=== PATIENT | female | born 1970 | race Asian ===

== ENCOUNTER 2017-08-14 19:43 | Emergency (ER) | payer OTHER ==
[~2017-08-14] VITALS: Ht 157.5 cm; Wt 59.9 kg
[2017-08-14] MEDS ORDERED: NKM (20:00)
--- NOTE | 2017-08-14 20:29 | Emergency Room Report ---
History of Present Illness General Chief Complaint: Laceration Source: Patient Present Illness HPI 47-year-old female p/w laceration. sustained when she was cutting food with a knife. Sustained slight superficial skin evulsion. No other complaints. Tdap is not up-to-date Allergies: Coded Allergies: No Known Allergies (Unverified , 08/14/17) Patient History Past Medical History: see triage record Past Surgical History: none Pertinent Family History: none Last Menstrual Period: 07/30/17 Now: No Reviewed Nursing Documentation: PMH: Agreed, PSxH: Agreed Nursing Documentation-PMH Past Medical History: No Stated History Review of Systems All Other Systems: negative except mentioned in HPI Physical Exam Vital Signs Date Time Temp Pulse Resp B/P (MAP) Pulse Ox O2 Delivery O2 Flow Rate FiO2 08/14/17 19:55 98.8 76 18 120/81 100 Room Air Sp02 EP Interpretation: reviewed, normal General Appearance: normal inspection, well appearing, no apparent distress, alert, GCS 15, non-toxic Head: normocephalic, atraumatic Eyes: bilateral eye normal inspection, bilateral eye PERRL, bilateral eye EOMI ENT: normal ENT inspection, normal pharynx, normal voice, moist mucus membranes Neck: normal inspection, full range of motion, supple Respiratory: normal inspection, lungs clear, normal breath sounds, no respiratory distress, no retraction, no wheezing, speaking full sentences, chest symmetrical Cardiovascular #1: normal inspection, regular rate, rhythm, normal capillary refill Cardiovascular #2: 2+ radial (R), 2+ radial (L) Gastrointestinal: normal inspection, non tender, soft Musculoskeletal: normal inspection, back normal, normal range of motion, non- tender Neurologic: normal inspection, alert, oriented x3, responsive, motor strength/ tone normal, sensory intact, normal gait, speech normal Psychiatric: normal inspection, judgement/insight normal, memory normal Skin: warm/dry, well hydrated, normal turgor, other - R thumb with skin avulsion <1cm. Medical Decision Making Diagnostic Impression: Primary Impression: Skin avulsion ER Course 47-year-old female with right thumb skin avulsion after cutting herself with a knife No repair indicated at this time ER course: Bacitracin applied sterile dressing applied Tdap given. Disposition: Patient will be discharged home. Strict return precautions discussed with patient such as fever, chills, increasing bleeding to site, purulent drainage, rapid swelling or redness to area. Patient verbalizes understanding. Patient instructed to return to ED or their primary care doctor in [ ] days for removal. Patient agrees with plan. Please note that this Emergency Department Report was dictated using [employer] intern technology software, occasionally this can lead to erroneous entry secondary to interpretation by the dictation equipment Last Vital Signs Date Time Temp Pulse Resp B/P (MAP) Pulse Ox O2 Delivery O2 Flow Rate FiO2 08/14/17 19:55 98.8 76 18 120/81 100 Room Air Disposition: HOME, SELF-CARE Condition: Stable Patient Instructions: Laceration Care, Adult Erick Tsang M.D. Aug 14, 2017 20:29
[2017-08-14] MEDS ORDERED: Bacitracin Oint UD TOPIC ONE (20:30)
[2017-08-14] MEDS ORDERED: Tetanus/Diptheria/Pertussis Vaccine 0.5ml Syr IM ONE (20:45)
[2017-08-14 20:52] VITALS: BP 120/81
== END 2017-08-14 20:52 | disposition home or self-care (01) ==
LOC: EMR 20:15
DX: S61.001A Unspecified open wound of right thumb without damage to nail, initial encounter (principal); W26.0XXA Contact with knife, initial encounter; Y92.89 Other specified places as the place of occurrence of the external cause; Z23 Encounter for immunization
CPT/HCPCS: 90471; 90715; 99284